=== PATIENT | male | born 1985 | race Caucasian/White ===

== ENCOUNTER 2023-12-05 05:53 | Emergency (ER) | payer OTHER ==
[2023-12-05 06:04] VITALS: BMI 31.1
[2023-12-05] MEDS ORDERED: FAMOTIDINE 20 MG TABLET ONE (06:21)
[2023-12-05] MEDS ORDERED: diphenhydrAMINE HCL 25 MG CAPSULE (FP) PO ONE (06:21)
[2023-12-05] MEDS: diphenhydrAMINE HCL 25 MG CAPSULE (FP) PO ONE (06:25)
[2023-12-05] MEDS: FAMOTIDINE 10 MG TABLET PO ONE (06:25)
[2023-12-05] MEDS: EPINEPHrine 1:1,000 0.3 MG/0.3 ML SYR IM ONE (06:36)
[2023-12-05] MEDS ORDERED: predniSONE 20 MG TABLET (UD) ONE (06:37)
[2023-12-05] MEDS: predniSONE 20 MG TABLET (UD) PO ONE (06:39)
[2023-12-05] MEDS: EPINEPHrine 1:1,000 1 MG/ML VIAL IM ONE (06:39)
[2023-12-05 07:36] VITALS: BP 158/98; PULSE 59; RESP 17; TEMP 98.2
== END 2023-12-05 08:30 | disposition home or self-care (01) ==
LOC: JER 05:53
DX: L50.0 Allergic urticaria (principal); R07.0 Pain in throat; R21 Rash and other nonspecific skin eruption
CPT/HCPCS: 99283-25